=== PATIENT | male | born 1955 | race Caucasian/White ===

== ENCOUNTER 2021-06-17 14:55 | Outpatient (CLI) | payer BC, MEDICARE | END 2021-06-17 14:56 | disposition home or self-care (01) | LOC: CSHCT 14:55 | PROVIDERS: ATTEND Internal Medicine | DX: Z12.2 Encounter for screening for malignant neoplasm of respiratory organs (principal); F17.210 Nicotine dependence, cigarettes, uncomplicated | CPT/HCPCS: 71271 ==

== ENCOUNTER 2021-11-08 10:43 | Outpatient (CLI) | payer BC, MEDICARE ==
[~2021-11-08 10:43] MED LIST: Iopamidol 300 61% 100 ML VIAL FS ONE
== END 2021-11-08 10:44 | disposition home or self-care (01) ==
LOC: CSHCT 10:43
PROVIDERS: ATTEND Specialist
DX: R63.4 Abnormal weight loss (principal); R63.0 Anorexia; R53.83 Other fatigue; K57.30 Diverticulosis of large intestine without perforation or abscess without bleeding; K63.9 Disease of intestine, unspecified
CPT/HCPCS: 74177; 82565; Q9967

== ENCOUNTER 2022-04-19 15:09 | Outpatient (CLI) | payer BC, MEDICARE | END 2022-04-19 15:10 | disposition home or self-care (01) | LOC: CSHMRI 15:09 | PROVIDERS: ATTEND Surgery | DX: M47.12 Other spondylosis with myelopathy, cervical region (principal); M50.23 Other cervical disc displacement, cervicothoracic region; M48.03 Spinal stenosis, cervicothoracic region; Z98.890 Other specified postprocedural states; M47.812 Spondylosis without myelopathy or radiculopathy, cervical region | CPT/HCPCS: 72125; 72141 ==

== ENCOUNTER 2022-11-02 14:24 | Outpatient (CLI) | payer MEDICARE | END 2022-11-02 14:25 | disposition home or self-care (01) | LOC: CSHULT 14:24 | PROVIDERS: ATTEND Internal Medicine | DX: I34.0 Nonrheumatic mitral (valve) insufficiency (principal); I77.810 Thoracic aortic ectasia; I34.1 Nonrheumatic mitral (valve) prolapse; I51.9 Heart disease, unspecified | CPT/HCPCS: 93306 ==